=== PATIENT | female | born 2000 | race Hispanic/Latino ===

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

== ENCOUNTER 2021-06-24 00:31 | Emergency (ER) | payer MEDICARE ==
--- NOTE | 2021-06-24 04:08 | Emergency Department Report ---
<AIMEE CARNEY Shahram - Last Filed: 06/24/21 12:31> ED General Adult HPI - General Chief complaint: Medical Clearance Stated complaint: POSS DISLOCATED JAW Time Seen by Provider: 06/24/21 04:03 - Related Data Previous Rx's Medication Instructions Recorded Last Taken Type clonazePAM [ Klonopin] 0.5 mg PO BID PRN #14 tab 08/06/19 Unknown Rx Famotidine [Pepcid] 20 mg PO Q12H #30 tablet 08/13/19 Unknown Rx Ondansetron [Zofran Odt] 4 mg PO Q6HR PRN #20 tab.rapdis 08/13/19 Unknown Rx Allergies Allergy/AdvReac Type Severity Reaction Status Date / Time codeine Allergy Itching Verified 06/24/21 07:51 dicyclomine [From Bentyl] Allergy Anaphylaxis Verified 06/24/21 07:51 Penicillins Allergy Anaphylaxis Verified 06/24/21 07:51 ED Past Medical Hx - Medications Home Medications: Home Medications Medication Instructions Recorded Confirmed Last Taken Type clonazePAM [ Klonopin] 0.5 mg PO BID PRN #14 tab 08/06/19 Unknown Rx Famotidine [Pepcid] 20 mg PO Q12H #30 tablet 08/13/19 Unknown Rx Ondansetron [Zofran Odt] 4 mg PO Q6HR PRN #20 tab.rapdis 08/13/19 Unknown Rx ED Medical Decision Making - Radiology Data Radiology results: report reviewed CT MAXILLOFACIAL WITHOUT CONTRAST INDICATION / CLINICAL INFORMATION: Pt reported jaw dislocation. TECHNIQUE: CT face was performed without the administration of intravenous contrast. In addition to axial source images, coronal and sagittal MPR series were provided. All CT scans at this location are performed using CT dose reduction for ALARA by means of automated exposure control. COMPARISON: None available. FINDINGS: FACIAL BONES: Bilaterally, the mandibular condyles lie anterior to the temporomandibular fossa compatible with bilateral mandibular condyle or dislocation. No fractures of the condyle demonstrated. Facial bones otherwise appear intact. PARANASAL SINUSES: No significant abnormality. ORBITS: No significant abnormality. SOFT TISSUES: No significant abnormality. VISUALIZED INTRACRANIAL STRUCTURES: No significant abnormality. ADDITIONAL FINDINGS: None. IMPRESSION: 1. Anterior dislocation of the bilateral mandibular condyles. No fractures of the face or mandible are demonstrated. ED Disposition Clinical Impression: Temporomandibular joint dislocation, recurrent, Dislocated mandible Disposition: [address] [place] [address] Is pt being admited?: No Does the pt Need Aspirin: No Condition: Stable Instructions: Moderate Conscious Sedation, Adult, Care After, Jaw Dislocation Additional Instructions: Take Motrin as needed for pain. follow-up with your doctor or doctor/clinic provided. Return if symptoms worsen as indicated by your discharge instructions. Referrals: PATRICIA SOTO MD [Staff Physician] - 3-5 Days (ENT MD) MICHELLE SAUCEDO MD [Referring] - 3-5 Days (ENT MD) <[facility] [address] [facility] - Last Filed: 06/26/21 18:15> ED General Adult HPI - General Source: EMS Mode of arrival: Stretcher Limitations: No Limitations - History of Present Illness Initial comments: patient presents from an inpatient psych facility with complaints of a spontaneously "dislocated jaw". 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 Denies any trauma. ED Review of Systems ROS: Stated complaint: POSS DISLOCATED JAW Other details as noted in HPI Comment: All other systems reviewed and negative Constitutional: denies: chills, fever ED Past Medical Hx - Past Medical History Previous Medical History?: Yes Hx Seizures: Yes Additional medical history: Reflux, gastroparesis, BURCH - Surgical History Additional Surgical History: Right wrist and right knee - Social History Smoking Status: Unknown if ever smoked ED Physical Exam - General Limitations: No Limitations General appearance: alert, in no apparent distress - Head Head exam: Present: atraumatic, normocephalic - Eye Eye exam: Present: PERRL, EOMI - ENT ENT exam: Present: mucous membranes moist, other (airway patent; speaking without any difficulty, opening and closing mouth) - Neck Neck exam: Present: other (supple; no JVD) - Respiratory Respiratory exam: Present: other (good air entry, nml I:E, CTAB, no use of REINA) - Cardiovascular Cardiovascular Exam: Present: regular rate, normal rhythm. Absent: rubs, gallop - GI/Abdominal GI/Abdominal exam: Present: soft, normal bowel sounds. Absent: distended, tenderness - Extremities Exam Extremities exam: Present: full ROM. Absent: tenderness - Back Exam Back exam: Present: full ROM. Absent: tenderness - Neurological Exam Neurological exam: Present: alert, oriented X3, CN II-XII intact. Absent: motor sensory deficit - Skin Skin exam: Present: warm, normal color ED Course Vital Signs 06/24/21 06/24/21 06/24/21 03:27 08:00 08:15 Temperature 97.8 F Temperature [ Post-Procedure] Temperature [ Pre-Procedure] Pulse Rate 80 83 99 H Pulse Rate [ Intra-Procedure ] Pulse Rate [ Post-Procedure] Pulse Rate [Pre -Procedure] Respiratory 20 23 21 Rate Respiratory Rate [Intra- Procedure] Respiratory Rate [Post- Procedure] Respiratory Rate [Pre- Procedure] Blood Pressure 141/85 137/78 Blood Pressure [Intra- Procedure] Blood Pressure [Post-Procedure ] Blood Pressure [Pre-Procedure] Blood Pressure [Right] O2 Sat by Pulse 100 100 100 Oximetry O2 Sat by Pulse Oximetry [ Intra-Procedure ] O2 Sat by Pulse Oximetry [Post -Procedure] O2 Sat by Pulse Oximetry [Pre- Procedure] 06/24/21 06/24/21 06/24/21 08:21 08:31 08:32 Temperature Temperature [ Post-Procedure] Temperature [ 98.4 F Pre-Procedure] Pulse Rate 94 H 94 H Pulse Rate [ Intra-Procedure ] Pulse Rate [ Post-Procedure] Pulse Rate [Pre 90 -Procedure] Respiratory 23 18 Rate Respiratory Rate [Intra- Procedure] Respiratory Rate [Post- Procedure] Respiratory 16 Rate [Pre- Procedure] Blood Pressure 127/79 127/79 Blood Pressure [Intra- Procedure] Blood Pressure [Post-Procedure ] Blood Pressure 135/83 [Pre-Procedure] Blood Pressure [Right] O2 Sat by Pulse 100 100 100 Oximetry O2 Sat by Pulse Oximetry [ Intra-Procedure ] O2 Sat by Pulse Oximetry [Post -Procedure] O2 Sat by Pulse 100 Oximetry [Pre- Procedure] 06/24/21 06/24/21 06/24/21 08:37 08:39 08:40 Temperature Temperature [ 98.5 F Post-Procedure] Temperature [ Pre-Procedure] Pulse Rate 94 H 81 Pulse Rate [ 94 H Intra-Procedure ] Pulse Rate [ 79 Post-Procedure] Pulse Rate [Pre -Procedure] Respiratory 14 11 L Rate Respiratory 14 Rate [Intra- Procedure] Respiratory 17 Rate [Post- Procedure] Respiratory Rate [Pre- Procedure] Blood Pressure 146/99 147/92 Blood Pressure 146/99 [Intra- Procedure] Blood Pressure 139/91 [Post-Procedure ] Blood Pressure [Pre-Procedure] Blood Pressure [Right] O2 Sat by Pulse 100 100 Oximetry O2 Sat by Pulse 100 Oximetry [ Intra-Procedure ] O2 Sat by Pulse 100 Oximetry [Post -Procedure] O2 Sat by Pulse Oximetry [Pre- Procedure] 06/24/21 06/24/21 06/24/21 08:45 09:00 09:15 Temperature Temperature [ 98.5 F Post-Procedure] Temperature [ Pre-Procedure] Pulse Rate 72 64 68 Pulse Rate [ Intra-Procedure ] Pulse Rate [ 72 64 68 Post-Procedure] Pulse Rate [Pre -Procedure] Respiratory 24 17 19 Rate Respiratory Rate [Intra- Procedure] Respiratory 24 17 19 Rate [Post- Procedure] Respiratory Rate [Pre- Procedure] Blood Pressure 136/76 115/58 114/58 Blood Pressure [Intra- Procedure] Blood Pressure 136/76 115/58 114/58 [Post-Procedure ] Blood Pressure [Pre-Procedure] Blood Pressure [Right] O2 Sat by Pulse 100 100 100 Oximetry O2 Sat by Pulse Oximetry [ Intra-Procedure ] O2 Sat by Pulse 100 100 100 Oximetry [Post -Procedure] O2 Sat by Pulse Oximetry [Pre- Procedure] 06/24/21 06/24/21 06/24/21 09:30 09:31 09:45 Temperature Temperature [ Post-Procedure] Temperature [ Pre-Procedure] Pulse Rate 63 64 Pulse Rate [ Intra-Procedure ] Pulse Rate [ 63 64 Post-Procedure] Pulse Rate [Pre -Procedure] Respiratory 18 15 Rate Respiratory Rate [Intra- Procedure] Respiratory 18 15 Rate [Post- Procedure] Respiratory Rate [Pre- Procedure] Blood Pressure 95/43 101/49 Blood Pressure [Intra- Procedure] Blood Pressure 95/43 101/49 [Post-Procedure ] Blood Pressure [Pre-Procedure] Blood Pressure [Right] O2 Sat by Pulse 100 98 Oximetry O2 Sat by Pulse Oximetry [ Intra-Procedure ] O2 Sat by Pulse 100 100 Oximetry [Post -Procedure] O2 Sat by Pulse Oximetry [Pre- Procedure] 06/24/21 06/24/21 06/24/21 10:00 10:15 10:30 Temperature Temperature [ Post-Procedure] Temperature [ Pre-Procedure] Pulse Rate 70 63 82 Pulse Rate [ Intra-Procedure ] Pulse Rate [ Post-Procedure] Pulse Rate [Pre -Procedure] Respiratory 14 14 13 Rate Respiratory Rate [Intra- Procedure] Respiratory Rate [Post- Procedure] Respiratory Rate [Pre- Procedure] Blood Pressure 119/64 107/41 125/51 Blood Pressure [Intra- Procedure] Blood Pressure [Post-Procedure ] Blood Pressure [Pre-Procedure] Blood Pressure [Right] O2 Sat by Pulse 97 97 99 Oximetry O2 Sat by Pulse Oximetry [ Intra-Procedure ] O2 Sat by Pulse Oximetry [Post -Procedure] O2 Sat by Pulse Oximetry [Pre- Procedure] 06/24/21 06/24/21 06/24/21 10:45 11:00 11:15 Temperature Temperature [ Post-Procedure] Temperature [ Pre-Procedure] Pulse Rate 64 82 84 Pulse Rate [ Intra-Procedure ] Pulse Rate [ Post-Procedure] Pulse Rate [Pre -Procedure] Respiratory 16 22 15 Rate Respiratory Rate [Intra- Procedure] Respiratory Rate [Post- Procedure] Respiratory Rate [Pre- Procedure] Blood Pressure 104/48 120/66 119/65 Blood Pressure [Intra- Procedure] Blood Pressure [Post-Procedure ] Blood Pressure [Pre-Procedure] Blood Pressure [Right] O2 Sat by Pulse 99 99 100 Oximetry O2 Sat by Pulse Oximetry [ Intra-Procedure ] O2 Sat by Pulse Oximetry [Post -Procedure] O2 Sat by Pulse Oximetry [Pre- Procedure] 06/24/21 06/24/21 06/24/21 11:30 11:45 12:00 Temperature Temperature [ Post-Procedure] Temperature [ Pre-Procedure] Pulse Rate 70 66 64 Pulse Rate [ Intra-Procedure ] Pulse Rate [ Post-Procedure] Pulse Rate [Pre -Procedure] Respiratory 16 19 16 Rate Respiratory Rate [Intra- Procedure] Respiratory Rate [Post- Procedure] Respiratory Rate [Pre- Procedure] Blood Pressure 120/69 119/61 122/65 Blood Pressure [Intra- Procedure] Blood Pressure [Post-Procedure ] Blood Pressure [Pre-Procedure] Blood Pressure [Right] O2 Sat by Pulse 98 97 97 Oximetry O2 Sat by Pulse Oximetry [ Intra-Procedure ] O2 Sat by Pulse Oximetry [Post -Procedure] O2 Sat by Pulse Oximetry [Pre- Procedure] 06/24/21 06/24/21 06/24/21 12:15 12:30 12:45 Temperature Temperature [ Post-Procedure] Temperature [ Pre-Procedure] Pulse Rate 93 H 80 58 L Pulse Rate [ Intra-Procedure ] Pulse Rate [ Post-Procedure] Pulse Rate [Pre -Procedure] Respiratory 21 13 17 Rate Respiratory Rate [Intra- Procedure] Respiratory Rate [Post- Procedure] Respiratory Rate [Pre- Procedure] Blood Pressure 126/81 120/60 99/45 Blood Pressure [Intra- Procedure] Blood Pressure [Post-Procedure ] Blood Pressure [Pre-Procedure] Blood Pressure [Right] O2 Sat by Pulse 100 100 100 Oximetry O2 Sat by Pulse Oximetry [ Intra-Procedure ] O2 Sat by Pulse Oximetry [Post -Procedure] O2 Sat by Pulse Oximetry [Pre- Procedure] 06/24/21 06/24/21 06/24/21 13:00 13:15 13:31 Temperature Temperature [ Post-Procedure] Temperature [ Pre-Procedure] Pulse Rate 67 60 70 Pulse Rate [ Intra-Procedure ] Pulse Rate [ Post-Procedure] Pulse Rate [Pre -Procedure] Respiratory 21 18 22 Rate Respiratory Rate [Intra- Procedure] Respiratory Rate [Post- Procedure] Respiratory Rate [Pre- Procedure] Blood Pressure 114/60 93/53 112/44 Blood Pressure [Intra- Procedure] Blood Pressure [Post-Procedure ] Blood Pressure [Pre-Procedure] Blood Pressure [Right] O2 Sat by Pulse 100 100 99 Oximetry O2 Sat by Pulse Oximetry [ Intra-Procedure ] O2 Sat by Pulse Oximetry [Post -Procedure] O2 Sat by Pulse Oximetry [Pre- Procedure] 06/24/21 06/24/21 06/24/21 13:45 14:15 15:07 Temperature 98.5 F Temperature [ Post-Procedure] Temperature [ Pre-Procedure] Pulse Rate 77 92 H 61 Pulse Rate [ Intra-Procedure ] Pulse Rate [ Post-Procedure] Pulse Rate [Pre -Procedure] Respiratory 17 19 20 Rate Respiratory Rate [Intra- Procedure] Respiratory Rate [Post- Procedure] Respiratory Rate [Pre- Procedure] Blood Pressure 117/57 100/42 Blood Pressure [Intra- Procedure] Blood Pressure [Post-Procedure ] Blood Pressure [Pre-Procedure] Blood Pressure 100/42 [Right] O2 Sat by Pulse 99 98 100 Oximetry O2 Sat by Pulse Oximetry [ Intra-Procedure ] O2 Sat by Pulse Oximetry [Post -Procedure] O2 Sat by Pulse Oximetry [Pre- Procedure] ED Medical Decision Making - Medical Decision Making Patient roomed @ ~ 4:30 am. Plain films initially ordered but [employer] informed us after about an hour that the machine required for XR of the jaw is not available in this facility. CT facial bones then ordered. Results not available at 6:00 am. Patient care transferred [facility] me [facility] @ 6:00 am. Sign out was given by me to her. Critical care attestation.: If time is entered above; I have spent that time in minutes in the direct care of this critically ill patient, excluding procedure time. ED Disposition Time of Disposition: 06:35 (Patient care transferred [facility] Sing out was given by me to her.)
--- NOTE | 2021-06-24 06:20 | Cat Scan Report ---
CT MAXILLOFACIAL WITHOUT CONTRAST INDICATION / CLINICAL INFORMATION: Pt reported jaw dislocation. TECHNIQUE: CT face was performed without the administration of intravenous contrast. In addition to a xial source images, coronal and sagittal MPR series were provided. All CT scans at this location are performed using CT dose reduction for ALARA by means of automated exposure control. COMPARISON: None available. FINDINGS: FACIAL BONES: Bilaterally, the mandibular condyles lie anterior to the temporomandibular fossa compat ible with bilateral mandibular condyle or dislocation. No fractures of the condyle demonstrated. Faci al bones otherwise appear intact. PARANASAL SINUSES: No significant abnormality. ORBITS: No significant abnormality. SOFT TISSUES: No significant abnormality. VISUALIZED INTRACRANIAL STRUCTURES: No significant abnormality. ADDITIONAL FINDINGS: None. IMPRESSION: 1. Anterior dislocation of the bilateral mandibular condyles. No fractures of the face or mandible ar e demonstrated. Signer Name: Adiel Xavier II, MD Signed: 06/24/2021 6:16 AM Workstation Name: [id number]
[2021-06-24] MEDS ORDERED: HYDROmorphone 1 MG/1 ML INJ IV ONE (07:50)
[2021-06-24] MEDS ORDERED: ONDANSETRON 4 MG/2 ML INJ IV ONE (07:50)
[2021-06-24] MEDS ORDERED: KETOROLAC 30 MG/1 ML INJ IV ONE (07:50)
[2021-06-24] MEDS ORDERED: KETAMINE 500 MG/5 ML VIAL MDV IV ONE (07:52)
[2021-06-24] MEDS ORDERED: propofoL 200 MG/20 ML VIAL IV ONE (07:52)
[2021-06-24] MEDS ORDERED: SODIUM CHLORIDE 0.9% 1000 ML 1,000 ML ONE (08:05)
--- NOTE | 2021-06-24 09:36 | Emergency Department Report ---
- Moderate Sedation Indications: fracture/dislocation redu ASA Class: II Mallampati Airway Score: 2 Time of Last PO Intake: 17:00 Preparation: vegetable canner applied, pulse oximeter, capnometry used, supplemental O2 applied, reversal agents at bedside, suction/airway equipment at bedside, IV secured Ketamine: IV Ketamine Dose: 70 IV Propofol Dose (mgs): 70 Complications: none Patient Tolerated Procedure: well Additional Comments: Patient tolerated procedure well without desaturation - Orthopedic Joint Reduction Joint #1 Consent Obtained: written consent Time Out Performed: Yes Joint Reduction Location: other (Bilateral mandible dislocation) Analgesia: moderate sedation Shoulder Technique Used (if applicable): other Technique Used: direct manipulation Post-Reduction Neuro Exam: intact Post-Reduction Vascular Exam: intact Post Reduction X-Ray Obtained: No Splint Applied: Yes (Marquise wrap applied to head and jaw to minimize opening) Patient Tolerated Procedure: well, no complications Additional Comments: Procedure time onset 8:32 AM and completed at 8:38 AM patient was observed by nurse as per protocol Patient did not feel that Marquise wrap was adequate to because it was a history of her daughter requested a c-collar which was placed
[2021-06-24 14:58] VITALS: BP 100/42
== END 2021-06-24 15:12 ==
LOC: ED 00:31
DX: S03.00XA Dislocation of jaw, unspecified side, initial encounter (principal); Z88.0 Allergy status to penicillin; Z88.5 Allergy status to narcotic agent
CPT/HCPCS: 36415; 70486; 84703; 96374; 96375; 99285; J1170; J1885; J2405; J2704; J3490; J7030

== ENCOUNTER 2021-11-19 21:15 | Emergency (ER) | payer MEDICARE ==
[2021-11-20 02:02] VITALS: BP 155/98
== END 2021-11-20 02:00 | disposition left against medical advice (07) ==
LOC: ED 21:15
DX: G43.909 Migraine, unspecified, not intractable, without status migrainosus (principal); Z53.21 Procedure and treatment not carried out due to patient leaving prior to being seen by health care provider

== ENCOUNTER 2021-11-20 18:33 | Emergency (ER) | payer MEDICARE ==
[2021-11-20 19:17] VITALS: BP 148/90
[2021-11-20] MEDS ORDERED: dexAMETHasone 4 MG/ML VIAL IV ONE (21:38)
[2021-11-20] MEDS ORDERED: KETOROLAC 30 MG/1 ML INJ IV ONE (21:38)
[2021-11-20] MEDS ORDERED: diphenhydrAMINE 50 MG/ML VIAL IV ONE (21:38)
[2021-11-20] MEDS ORDERED: METOCLOPRAMIDE 10 MG/2 ML INJ IV ONE (21:38)
[2021-11-20] MEDS ORDERED: SODIUM CHLORIDE 0.9% 1000 ML 1,000 ML IV ONE (21:38)
--- NOTE | 2021-11-20 23:30 | Emergency Department Report ---
ED Headache HPI - General Chief Complaint: Headache Stated Complaint: MIGRAINE HEADACHE Time Seen by Provider: 11/20/21 21:28 - History of Present Illness Initial Comments: 21-year-old white female with a past medical history of migraine headaches, epilepsy, and asthma presents to the emergency department for evaluation of 4- day history of persistent headache. She states that she has taken Fioricet at home without improvement. She states that she has had some nausea and vomiting along with photophobia but denies any vision changes and dizziness. States that headache at its worst is 9 out of 10. Timing/Duration: other (4 days) Quality: severe, achy, throbbing Head Injury Location: frontal Associated Symptoms: nausea/vomiting. denies: confusion, fatigue, facial pain, fever/chills, flushing, loss of consciousness, nasal congestion, nasal drainage, numbness in legs/feet, rash, seizures, sinus infection, stiff neck, vision changes, weakness Allergies/Adverse Reactions: Allergies codeine Allergy (Verified 06/24/21 07:51) Itching dicyclomine [From Bentyl] Allergy (Verified 06/24/21 07:51) Anaphylaxis Penicillins Allergy (Verified 06/24/21 07:51) Anaphylaxis Home Medications: Ambulatory Orders clonazePAM [ Klonopin] 0.5 mg PO BID PRN #14 tab 08/06/19 Famotidine [Pepcid] 20 mg PO Q12H #30 tablet 08/13/19 Ondansetron [Zofran Odt] 4 mg PO Q6HR PRN #20 tab.rapdis 08/13/19 ED Review of Systems ROS: Stated complaint: MIGRAINE HEADACHE Other details as noted in HPI Comment: All other systems reviewed and negative Constitutional: denies: chills, fever Eyes: denies: eye pain, vision change ENT: denies: ear pain, congestion Respiratory: denies: shortness of breath Cardiovascular: denies: chest pain, palpitations Gastrointestinal: nausea, vomiting. denies: abdominal pain Musculoskeletal: denies: back pain Neurological: headache. denies: weakness ED Past Medical Hx - Past Medical History Previous Medical History?: Yes Hx Headaches / Migraines: Yes (CAUSES STUDDERING) Hx Seizures: Yes Additional medical history: Reflux, gastroparesis, BURCH - Surgical History Past Surgical History?: Yes Additional Surgical History: Right wrist and right knee - Social History Smoking Status: Unknown if ever smoked - Medications Home Medications: Home Medications Medication Instructions Recorded Confirmed Last Taken Type clonazePAM [ Klonopin] 0.5 mg PO BID PRN #14 tab 08/06/19 Unknown Rx Famotidine [Pepcid] 20 mg PO Q12H #30 tablet 08/13/19 Unknown Rx Ondansetron [Zofran Odt] 4 mg PO Q6HR PRN #20 tab.rapdis 08/13/19 Unknown Rx ED Physical Exam - General Limitations: No Limitations General appearance: alert, in no apparent distress - Head Head exam: Present: atraumatic, normocephalic - Eye Eye exam: Present: normal appearance. Absent: conjunctival injection, periorbital swelling, periorbital tenderness - ENT ENT exam: Absent: normal exam (Bilateral nasal mucosal edema), normal orophraynx (Erythema noted to posterior) - Neck Neck exam: Present: normal inspection, full ROM. Absent: tenderness, lymphadenopathy - Respiratory Respiratory exam: Present: normal lung sounds bilaterally. Absent: respiratory distress, wheezes, rales, rhonchi, stridor, chest wall tenderness - Cardiovascular Cardiovascular Exam: Present: tachycardia, normal heart sounds - GI/Abdominal GI/Abdominal exam: Present: soft, normal bowel sounds. Absent: distended, tenderness, guarding, rebound, rigid - Extremities Exam Extremities exam: Present: normal inspection, normal capillary refill - Back Exam Back exam: Present: normal inspection. Absent: CVA tenderness (R), CVA tenderness (L) - Neurological Exam Neurological exam: Present: alert, oriented X3, CN II-XII intact, normal gait, reflexes normal. Absent: motor sensory deficit - Psychiatric Psychiatric exam: Present: normal affect, normal mood - Skin Skin exam: Present: warm, dry, intact, normal color ED Course Vital Signs 11/20/21 19:16 Temperature 98.4 F Pulse Rate 103 H Respiratory 20 Rate Blood Pressure 148/90 O2 Sat by Pulse 93 Oximetry - Reevaluation(s) Reevaluation #1: 11/20/21 23:26 Headache totally resolved and patient states that she feels much better. ED Medical Decision Making - Medical Decision Making 21-year-old white female with a past medical history of migraine headaches, epilepsy, and asthma presents to the emergency department for evaluation of 4- day history of persistent headache. She states that she has taken Fioricet at home without improvement. She states that she has had some nausea and vomiting along with photophobia but denies any vision changes and dizziness. States that headache at its worst is 9 out of 10. Physical examination unremarkable. Headache totally resolved after medications. Patient discharged home to follow-up with her primary care provider for further evaluation and management. She is advised to return to the emergency department as needed. She verbalizes understanding of and agreement with plan of care. Critical care attestation.: If time is entered above; I have spent that time in minutes in the direct care of this critically ill patient, excluding procedure time. ED Disposition Clinical Impression: Headache Qualifiers: Headache type: unspecified Headache chronicity pattern: acute headache Intractability: not intractable Qualified Code(s): R51.9 - Headache, unspecified Disposition: 01 HOME / SELF CARE / HOMELESS Is pt being admited?: No Does the pt Need Aspirin: No Condition: Stable Instructions: General Headache Without Cause, [id number] Additional Instructions: Follow-up with your primary care provider for further evaluation and management. Return to the emergency department as needed. Referrals: JUANA MACIAS MD [Staff Physician] - 3-5 Days Forms: Work/School Release Form(ED) Time of Disposition: 23:32
== END 2021-11-20 22:30 | disposition home or self-care (01) ==
LOC: ED 18:33
DX: R51.9 Headache, unspecified (principal)
CPT/HCPCS: 96361; 96374; 96375; 99282; J1100; J1200; J1885; J2765; J7030